=== PATIENT | female | born 1945 | race Caucasian/White ===

== ENCOUNTER 2018-11-22 06:32 | Day surgery (SDC) | payer MEDICARE ==
[2018-11-21 13:02] VITALS: BMI 40.2
--- NOTE | 2018-11-22 12:40 | CT ---
CT GUIDED LUMBAR MYELOGRAM CT LUMBAR SPINE WITH CONTRAST (CT LUMBAR MYELOGRAM): DATE: 11-23-18 HISTORY: 73-year-old female with chronic low back pain and right lumbar radiculopathy M48.061, lumbar stenosis without neurogenic claudication COMPARISON: None available TECHNIQUE: Signed informed consent obtained. Radiographic housing counselor images of the lumbar spine obtained, then fluoro scopy performed, for myelogram planning. The radiograph demonstrates extensive fusion, including bony overgrowth of posterior elements. At this point it was decided to perform the myelogram under CT cresencio dance. Patient was placed prone on the CT table. Skin of lower back was prepped and draped in usual s terile fashion. 25 gauge needle was used to apply buffered Lidocaine superficially. Under step CT cresencio dance, a 22 gauge spinal needle was advanced from a right paramedian approach into the spinal canal a nd thecal sac at the L5-S1 level. Upon return of clear CSF, a total of 10 ml of CSF was slowly remove d, and then replaced with 11 ml of Isovue M240. Spinal needle was removed. Patient tolerated the proc edure well. No complications. Total fluoroscopy time prior to the actual myelogram: 0.2 minutes Dose Area Product: 661.4 mGy*cm^2. FINDINGS: There are five lumbar type vertebrae. Vertebral body heights are maintained. There is disc space narr owing at all levels, moderate and severe. There are bilateral pedicle screws with vertical interlocki ng rods, at L2, L3, L4 and L5. There is no evidence of loosening of hardware. The distal tip of the r ight L5 pedicle screw slightly breeches the right anterolateral vertebral body cortex. The L5 pedicle screw traverses the lateral edge of the left lateral recess. There is on lay bone graft fusion at th e posterior elements, at the levels of the pedicle screws. There has been laminectomies at multiple l evels, but the dorsal aspects of the spinal canal are covered by the on laid bone graft osseous overg rowth. Large, severe bony sclerosis involving the majority of the volumes of the T12 and L1 vertebral bodies, apparently discogenic in nature. Severe vacuum disc phenomenon at T12-L1, and to a lesser de gree at L1-2, and T11-12. Mild disc bulges indent the ventral surface of the thecal sac at T12-L1 and L1-2, causing only mild central spinal canal stenosis. The spinal canal and thecal sac are generous in caliber throughout all other levels. There is no high grade osseous neural foraminal stenosis at a ny level. The presence of the streak artifact from the hardware makes it somewhat difficult to identi fy lateral disc herniations and scar tissue in the neural foramina. There is probably scar tissue (ve rsus edema) in the right L3-4 neural foramen surrounding the exiting right L3 nerve root. The conus m edullaris terminates at lower L2 level. There is severe clumping of the cauda equina into a V shape a t the posterior aspect of the thecal sac from L3 through L4-5 levels. The cauda equina resumes a norm al distribution in the thecal sac at L5 and S1. There is graft material at the L4-5 disc space. There is evidence of ankylosis of the L4 and L5 vertebral bodies across the disc space. There is definitel y complete, solid ankylosis across the obliterated L5-S1 disc space. There is probable partial ankylo sis across the L3-4 disc space. Vacuum joint phenomenon and sclerosis of bilateral SI joints. IMPRESSION: 1. Evidence of chronic arachnoiditis from L3 through L4-5 levels. 2. No high grade central spinal canal stenosis or high grade bony neural foraminal stenosis at any le srinivas. 3. Mild fat stranding in the right L3-4 neural foramen, questionable for post-surgical scar tissue or edema, surrounding the right L3 nerve root. 4. Bilateral pedicle screws and successful fused posterior element onlay bone grafts at L2-3-4-5. 5. High grade discogenic degenerative changes at T11-12, T12-L1, and L1-2, and to a lesser degree L2- 3. 6. 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 7. Moderate osteoarthrosis of bilateral sacroiliac joints. POS: DENITA
== END 2018-11-22 10:00 | disposition home or self-care (01) ==
LOC: RAD 06:32
PROVIDERS: ATTEND Neurological Surgery
PROC: B01B1ZZ Fluoroscopy of Spinal Cord using Low Osmolar Contrast (ICD-10-PCS; principal; 2018-11-22)
DX: M48.061 Spinal stenosis, lumbar region without neurogenic claudication (principal); M47.814 Spondylosis without myelopathy or radiculopathy, thoracic region; M47.815 Spondylosis without myelopathy or radiculopathy, thoracolumbar region; M47.26 Other spondylosis with radiculopathy, lumbar region; I48.91 Unspecified atrial fibrillation; I10 Essential (primary) hypertension; Z79.01 Long term (current) use of anticoagulants; Z79.82 Long term (current) use of aspirin; Z79.899 Other long term (current) drug therapy; Z88.0 Allergy status to penicillin; Z88.1 Allergy status to other antibiotic agents; Z88.7 Allergy status to serum and vaccine; Z88.8 Allergy status to other drugs, medicaments and biological substances; Z91.048 Other nonmedicinal substance allergy status; Z95.0 Presence of cardiac pacemaker; Z95.5 Presence of coronary angioplasty implant and graft; Z98.1 Arthrodesis status
CPT/HCPCS: 62304; 72132; 77002